=== PATIENT | female | born 1940 | race Caucasian/White ===

== ENCOUNTER 2021-02-01 05:40 | Inpatient (IN) ==
[2021-02-01] MEDS ORDERED: SODIUM CHLORIDE 0.9% 1000ML 1,000 ML IV ONE (06:07)
--- NOTE | 2021-02-01 06:14 | Emergency Department Note ---
Impression & Plan Acute lower GI bleeding, Diverticulitis, Syncope and collapse ED Provider Note Name: HANNAH TORO Age: 80 Sex: F Arrives Via: Walk-In Informant: Patient, daughter ED Provider: Pedro Luis Lance MD Chief Complaint: abdominal pain Impression: Acute Lower GI Bleeding Diverticulitis Syncope and Collapse Medical Decision Makin yr old female with acute lower abdominal pain, syncope/near syncope at football game and bright red rectal bleeding. On arrival tachy and pale, but improved with IV fluids. TTP LLQ abdomen thus ct obtained. Labs unremarkable with normal trop. Not consistent with PE/dissection. CT reveals acute diverticulitis. Given findings will need further evaluation/monitoring. Hospitalist paged for further management. Triage/Nursing Notes reviewed by Me Differentials:Diverticulosis, AVM, coagulopathy, colitis, inflammatory bowel disease, malignancy, Farhana-Diaz tear, esophagitis, peptic ulcer disease, variceal bleed, gastritis, epistaxis, fissure, hemorrhoids, as well as other pathologies. Vital Signs: reviewed and remarkable for tachy Interventions: nss bolus 1 L IV, zosyn iv Labs:Reviewed and remarkable for no significant abnormalities Imaging:Radiologist interpretation reviewed by me: ct a/p w iv con: Acute Diverticulitis Consult: Dr Garrison - Hospitalist Plan: Disposition:Hospitalization. Condition: Good History of Present Illness:80 yr old female arrives for evaluation of rectal bleeding. Patient notes she developed abdominal cramping followed by several bouts of diarrhea last nights. Admits she is unsure is blood in stool at that time. After leaving bathroom she had near-syncopal event. She was seen at [facility] and given 1 L NSS and Zofran IV. As she was feeling better discharge to home. Worsening abdominal cramping throughout the night. Several large bloody bowel movement this morning. Pain in LLQ worse with movement. Staying still makes her feel better. No medications taken for this. Denies previous bleeding issues. Takes no blood thinners. Notes previous diagnosis of diverticulosis though no history infection. No fevers, chills, vomiting, chest pain, epigastric pain, back pain, leg swelling, bruising nor other symptoms. Took Advil 2 nights ago for a sore shoulder but rarely uses NSAIDs. ROS: See above HPI for pertinent positives & negatives. A total of 10 systems reviewed and were otherwise negative. 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 EYES: No scleral icterus, unremarkable pupils. ENT: Mucous membranes moist, no nasal congestion. NECK: No masses appreciated, nomeningismus, trachea is midline. RESPIRATORY: No dyspnea. Clear to auscultation and equal bilaterally. No wheeze, no rhonchi. CARDIOVASCULAR: Tachy.No murmurs, rubs, gallops appreciated. GASTROINTESTINAL: LLQ TTP with hyperactive bowel sounds, otherwise abdomen soft, non-tender, no peritonitis.No masses appreciated. RECTAL: Bloody stool without hemorrhoids BACK: No midline tenderness, no CVA tenderness EXTREMITIES: Normal motion all extremities, no cyanosis, no edema. NEUROLOGIC: Alert and oriented, no acute motor or sensory deficits, no focal weakness, cranial nerves grossly intact. SKIN: No rash, no jaundice, no diaphoresis. PSYCH: Appropriate GCS: 15 ED Course: Times/Reassessments: stable, declines pain meds, much improved with IV fluids Pedro Luis Lance MD Past Med/Surg History Social History Smoking Status: Never smoker Preferred Language: Polish Feels Safe at Home: Yes Allergies Allergies Allergy/AdvReac Type Severity Reaction Status Date / Time No Known Allergies Allergy Unverified 02/01/21 07:53 Home Meds Home Medications Medication Instructions Recorded Confirmed atorvastatin 20 mg tablet (Lipitor) 20 mg PO QAM 02/01/21 02/01/21 levothyroxine 50 mcg tablet 50 mcg PO DAILYBB 02/01/21 02/01/21 (Synthroid) loratadine 10 mg tablet (Claritin) 10 mg PO HS 02/01/21 02/01/21 multivitamin 1 tab PO QAM 02/01/21 02/01/21 ramipril 10 mg capsule (Altace) 10 mg PO QAM 02/01/21 02/01/21 Results & Data (ED) Vital Signs Vital Signs - 24 hr 02/01/21 05:44 Temperature 37.1 C Temperature Source Oral Pulse Rate 120 H Respiratory Rate 20 Respiratory Depth Normal Blood Pressure 127/77 Blood Pressure Mean 93 Pulse Oximetry 97 Oxygen Delivery Method Room Air Sepsis Recent Fever Within 48 Hours No Sepsis New/Unexplained Change in Mental Status N/A Sepsis Action Taken by Nursing No Action Required Laboratory Data Result diagrams: 02/01/21 06:20 02/01/21 06:20 Lab Results 02/01/21 02/01/21 02/01/21 Range/Units 06:20 06:20 06:20 WBC 10.90 H (4.8-10.8) K/uL RBC 4.21 (4.2-5.4) M/uL Hgb 13.1 (12.0-16.0) g/dL POC Hgb (12.0-16.0) g/dl Hct 38.9 (37-47) % POC Hct (37-47) % MCV 92.4 (80-100) fL MCH 31.1 (25-34) pg MCHC 33.7 (32-36) g/dL RDW Std Deviation 43.3 (36.4-46.3) fL RDW Coeff of Torito 12.8 (11.5-14.5) % Plt Count 192 (130-400) K/uL MPV 9.7 (7.4-10.4) fL Immature Gran % (Auto) 0.2 % Neut % (Auto) 83.0 % Lymph % (Auto) 10.6 % [place] % (Auto) 4.2 % Eos % (Auto) 1.9 % Baso % (Auto) 0.1 % Neut # (Auto) 9.04 H (1.4-6.5) K/uL Lymph # (Auto) 1.16 L (1.2-3.4) K/uL [place] # (Auto) 0.46 (0.11-0.59) K/uL Eos # (Auto) 0.21 (0-0.5) K/uL Baso # (Auto) 0.01 (0-0.2) K/uL Immature Gran # (Auto) 0.02 (0.00-0.02) K/uL PT 10.0 (9.0-12.0) Seconds INR 1.0 (0.9-1.1) APTT 23.6 (21.0-31.0) Seconds PTT Ratio 0.9 POC Sodium (135-144) mmol/L Sodium 143 (136-145) mmol/L POC Potassium (3.3-5.0) mmol/L Potassium 4.1 (3.5-5.1) mmol/L POC Chloride (101-112) mmol/L Chloride 111 H (98-107) mmol/L Carbon Dioxide 24 (21-32) mmol/L POC Total CO2 (24-31) mmol/L Anion Gap 8.0 (3-11) POC Anion Gap (16-25) mmol/L POC BUN (7-18) mg/dl BUN 14 (7-18) mg/dl Creatinine 0.92 (0.6-1.2) mg/dl POC Creatinine (0.6-1.3) mg/dl Est Cr Clr Drug Dosing 44.1 ml/min Est GFR ( Amer) 67.2 ml/min Est GFR (Non-Af Amer) 58.0 ml/min BUN/Creatinine Ratio 15.3 (10-20) Glucose 123 H (70-99) mg/dl POC Glucose (other) (70-99) mg/dl Calcium 8.9 (8.5-10.1) mg/dl POC Ioniz Calcium Wander (1.12-1.32) mmol/l Magnesium 2.0 (1.8-2.4) mg/dl Total Bilirubin 0.6 (0.2-1) mg/dl Direct Bilirubin 0.1 (0-0.2) mg/dl AST 24 (15-37) U/L ALT 26 (12-78) U/L Alkaline Phosphatase 77 (45-117) U/L Total Protein 6.8 (6.4-8.2) gm/dl Albumin 3.6 (3.4-5.0) gm/dl Lipase 115 (73-393) U/L COVID-19 Eval Order Blood Type Antibody Screen 02/01/21 02/01/21 02/01/21 Range/Units 06:34 07:02 07:55 WBC (4.8-10.8) K/uL RBC (4.2-5.4) M/uL Hgb (12.0-16.0) g/dL POC Hgb 12.6 (12.0-16.0) g/dl Hct (37-47) % POC Hct 37 (37-47) % MCV (80-100) fL MCH (25-34) pg MCHC (32-36) g/dL RDW Std Deviation (36.4-46.3) fL RDW Coeff of Torito (11.5-14.5) % Plt Count (130-400) K/uL MPV (7.4-10.4) fL Immature Gran % (Auto) % Neut % (Auto) % Lymph % (Auto) % [place] % (Auto) % Eos % (Auto) % Baso % (Auto) % Neut # (Auto) (1.4-6.5) K/uL Lymph # (Auto) (1.2-3.4) K/uL [place] # (Auto) (0.11-0.59) K/uL Eos # (Auto) (0-0.5) K/uL Baso # (Auto) (0-0.2) K/uL Immature Gran # (Auto) (0.00-0.02) K/uL PT (9.0-12.0) Seconds INR (0.9-1.1) APTT (21.0-31.0) Seconds PTT Ratio POC Sodium 142 (135-144) mmol/L Sodium (136-145) mmol/L POC Potassium 4.1 (3.3-5.0) mmol/L Potassium (3.5-5.1) mmol/L POC Chloride 108 (101-112) mmol/L Chloride (98-107) mmol/L Carbon Dioxide (21-32) mmol/L POC Total CO2 21 L (24-31) mmol/L Anion Gap (3-11) POC Anion Gap 17.0 (16-25) mmol/L POC BUN 14 (7-18) mg/dl BUN (7-18) mg/dl Creatinine (0.6-1.2) mg/dl POC Creatinine 0.8 (0.6-1.3) mg/dl Est Cr Clr Drug Dosing ml/min Est GFR ( Amer) ml/min Est GFR (Non-Af Amer) ml/min BUN/Creatinine Ratio (10-20) Glucose (70-99) mg/dl POC Glucose (other) 123 H (70-99) mg/dl Calcium (8.5-10.1) mg/dl POC Ioniz Calcium Wander 1.22 (1.12-1.32) mmol/l Magnesium (1.8-2.4) mg/dl Total Bilirubin (0.2-1) mg/dl Direct Bilirubin (0-0.2) mg/dl AST (15-37) U/L ALT (12-78) U/L Alkaline Phosphatase (45-117) U/L Total Protein (6.4-8.2) gm/dl Albumin (3.4-5.0) gm/dl Lipase (73-393) U/L COVID-19 Eval Order Covid19 at [facility] Blood Type A Negative Antibody Screen NEGATIVE Administered Medications Discontinued Medications Sodium Chloride (Nss 1000ml) 1,000 mls @ 999 mls/hr IV .Q1H1M ONE Stop: 02/01/21 07:07 Last Infusion: 02/01/21 08:00 Dose: 0 mls/hr Documented by: [id number] Admin: 02/01/21 06:26 Dose: 999 mls/hr Documented by: [id number] Ioversol (Optiray 320 100ml) 93 ml IV ONCE ONE Stop: 02/01/21 07:12 Last Admin: 02/01/21 07:11 Dose: 93 ml Documented by: [id number] Imaging Data Radiologist's Impression: Abdomen/Pelvis CT 02/01/21 06:07 CT abd pelvis IV con only CLINICAL INDICATION: MN ^CTCN RM B7 ^LLQ pain, gi bleed. TECHNIQUE: Helical axial images of the abdomen and pelvis were obtained and displayed at 5 and 1 mm intervals. Automated dose lowering techniques and/or adjustment according to patient size were utilized for this exam. This exam was performed with intravenous contrast. COMPARISON: None available at the time of this dictation. FINDINGS: Lower chest: Bibasilar atelectasis is seen. Liver: Unremarkable. No focal lesions are seen. Gallbladder and biliary tree: No calcified gallstones. Normal caliber wall. Common bile duct measures 8 mm which is appropriate for age. Pancreas: Unremarkable, no focal lesions. Spleen: Unremarkable. Adrenals: Unremarkable. Kidneys and ureters: Unremarkable. Bladder: Unremarkable. Reproductive organs: Patient is status post hysterectomy. Bowel: Diverticulosis is seen. There is wall thickening and pericolonic edema in the sigmoid flexure and proximal descending colon. The appendix is normal. Small bowel loops are nondilated. There is a small hiatal hernia. Lymph nodes Retroperitoneal: Unremarkable. Mesenteric: Unremarkable. Pelvic: Unremarkable. Peritoneum: Normal, in particular no pneumoperitoneum or drainable fluid collection. Vessels: Atherosclerotic calcifications are seen. Abdominal wall: Unremarkable. Bones: Degenerative changes in the visualized spine. IMPRESSION: Acute diverticulitis in the sigmoid and descending colon. No evidence of abscess or perforation. ACT 112: Negative or not required by law. Electronically signed by: Chandler Lucas M.D. 02/01/2021 8:00 AM Discharge Plan Visit Data Chief Complaint: Rectal Bleed Stated Complaint: BLEEDING,RECTAL,ABD PAIN ED Provider: Pedro Luis Lance Discharge Problem: Acute lower GI bleeding, Diverticulitis, Syncope and collapse Patient Disposition: Admitted As Inpatient Condition: Good Forms Stand Alone Forms: [facility], Virtual Emergency Department, Important Visit Information Prescriptions Prescriptions: No Action multivitamin Tablet 1 tab PO QAM RF: 0 atorvastatin [Lipitor] 20 mg tablet 20 mg PO QAM RF: 0 levothyroxine [Synthroid] 50 mcg tablet 50 mcg PO DAILYBB RF: 0 loratadine [Claritin] 10 mg Tablet 10 mg PO HS RF: 0 ramipril [Altace] 10 mg capsule 10 mg PO QAM RF: 0 Referrals Referrals: PCP,NO [Primary Care Provider] -
[2021-02-01 06:40] LABS: Basophils # (auto) 0.01 K/uL (0-0.2); Basophils % (auto) 0.1 %; Eosinophils # (auto) 0.21 K/uL (0-0.5); Eosinophils % (auto) 1.9 %; Hematocrit (blood only) 38.9 % (37-47); Hemoglobin 13.1 g/dL (12.0-16.0); Immature Granulocytes # (auto) 0.02 K/uL (0.00-0.02); Immature Granulocytes % (auto) 0.2 %; Lymphocytes # (auto) 1.16 K/uL (1.2-3.4); Lymphocytes % (auto) 10.6 %; Mean Corpuscular Hemoglobin 31.1 pg (25-34); Mean Corpuscular Hgb Conc 33.7 g/dL (32-36); Mean Corpuscular Volume 92.4 fL (80-100); Mean Platelet Volume 9.7 fL (7.4-10.4); Monocytes # (auto) 0.46 K/uL (0.11-0.59); Monocytes % (auto) 4.2 %; Neutrophils # (auto) 9.04 K/uL (1.4-6.5); Platelet Count 192 K/uL (130-400); RDW Coefficient of Variation 12.8 % (11.5-14.5); RDW Standard Deviation 43.3 fL (36.4-46.3); Red Blood Count 4.21 M/uL (4.2-5.4)
[2021-02-01 06:51] LABS: Partial Thromboplastin Ratio 0.9; Partial Thromboplastin Time 23.6 Seconds (21.0-31.0)
[2021-02-01 06:52] LABS: iSTAT Creatinine 0.8 mg/dl (0.6-1.3); iSTAT Hemoglobin 12.6 g/dl (12.0-16.0); iSTAT Ionized Calcium 1.22 mmol/l (1.12-1.32); iSTAT Potassium 4.1 mmol/L (3.3-5.0)
[2021-02-01 07:00] LABS: Albumin Level 3.6 gm/dl (3.4-5.0); BUN Creatinine Ratio 15.3 (10-20); Bilirubin Direct 0.1 mg/dl (0-0.2); Calcium 8.9 mg/dl (8.5-10.1); Creatinine Clr Calc Pharmacy 44.1 ml/min; Est GFR (African American) 67.2 ml/min; Potassium 4.1 mmol/L (3.5-5.1)
[2021-02-01 07:02] LABS: Bilirubin,Total 0.6 mg/dl (0.2-1); Total Protein 6.8 gm/dl (6.4-8.2)
[2021-02-01] MEDS ORDERED: OPTIRAY 320 100ml IV ONE (07:11)
--- NOTE | 2021-02-01 08:02 | CT Scan Report ---
CT abd pelvis IV con only CLINICAL INDICATION: MN ^CTCN RM B7 ^LLQ pain, gi bleed. TECHNIQUE: Helical axial images of the abdomen and pelvis were obtained and displayed at 5 and 1 mm i ntervals. Automated dose lowering techniques and/or adjustment according to patient size were utilize d for this exam. This exam was performed with intravenous contrast. COMPARISON: None available at the time of this dictation. FINDINGS: Lower chest: Bibasilar atelectasis is seen. Liver: Unremarkable. No focal lesions are seen. Gallbladder and biliary tree: No calcified gallstones. Normal caliber wall. Common bile duct measures 8 mm which is appropriate for age. Pancreas: Unremarkable, no focal lesions. Spleen: Unremarkable. Adrenals: Unremarkable. Kidneys and ureters: Unremarkable. Bladder: Unremarkable. Reproductive organs: Patient is status post hysterectomy. Bowel: Diverticulosis is seen. There is wall thickening and pericolonic edema in the sigmoid flexure and proximal descending colon. The appendix is normal. Small bowel loops are nondilated. There is a s mall hiatal hernia. Lymph nodes Retroperitoneal: Unremarkable. Mesenteric: Unremarkable. Pelvic: Unremarkable. Peritoneum: Normal, in particular no pneumoperitoneum or drainable fluid collection. Vessels: Atherosclerotic calcifications are seen. Abdominal wall: Unremarkable. Bones: Degenerative changes in the visualized spine. IMPRESSION: Acute diverticulitis in the sigmoid and descending colon. No evidence of abscess or perforation. ACT 112: Negative or not required by law. Electronically signed by: Chandler Lucas M.D. 02/01/2021 8:00 AM
[2021-02-01] MEDS ORDERED: PIPERACILL/TAZOBAC CONSULT ACTIVE PRN ×2 (08:12→09:37)
[2021-02-01] MEDS ORDERED: PIPERACILLIN/TAZOBACTAM 4.5 GM/120 ML BAG IV ONE ×2 (08:12→14:00)
[2021-02-01 08:57] LABS: Appearance Urine Clear (Clear); Bacteria Urine Automated Negative (Negative); Bilirubin Urine Negative (Negative); Blood Urine 2+ (Negative); Color Urine Yellow; Glucose Urine UA Negative (Negative); Ketones Urine Negative (Negative); Leukocyte Esterase Urine Trace (Negative); Nitrite Urine Negative (Negative); Protein Urine Negative (Negative); RBC Urine Automated 0-4 /hpf (0-4); Specific Gravity Urine 1.008 (1.000-1.030); Urobilinogen Urine Negative (Negative); pH Urine 6.5 (4.5-7.5)
--- NOTE | 2021-02-01 09:53 | History & Physical Report ---
Date of Service February 01, 2021 Assessment & Plan (1) Diverticulitis: Plan: Acute diverticulitis without any abscess and/or perforation Sigmoid colon and the descending colon Started with intravenous Zosyn IV fluid and n.p.o. for now (2) Acute lower GI bleeding: Plan: Acute lower GI bleed likely secondary to diverticulitis and diverticular bleed We will check H&H every 6 hourly GI consult for possible colonoscopy Blood transfusion hemoglobin drops below 7 (3) Syncope and collapse: Plan: Likely secondary to dehydration Doubt any cardiac and/or neurological cause of this syncope (4) Hypertension: Plan: We will continue her current medication (5) Hypothyroidism: Plan: Continue supplement (6) Hyperlipidemia: Plan: Continue current medications DVT prophylaxis-SCDs CODE STATUS Full History of Present Illness Chief Complaint: Abdominal discomfort with near syncope and diarrhea with blood in the stool since yesterday Primary Care Provider: NO PCP She is an 80-year-old female with significant past medical history of hypertension hyperlipidemia and hypothyroidism apparently has been visiting to watch the football game has been complaining of abdominal discomfort with near syncope episode since yesterday while she was in the stadium. She has had bowel movement x2 and was seen by the medical personnel over the and not sent home. She also received intravenous fluid before going home. She has had continued abdominal discomfort and 2 more episodes of loose stool at home which showed blood and she is still feeling dizzy and from that point she was brought into the emergency room for further evaluation. She complained to have some chills but no documented fever. She felt nauseous but no vomiting. Her abdominal discomfort persisted. Denies any chest pain and/or palpitation, any cough and no shortness of breath, any neurological symptoms. She was noted to have minimally elevated white count at more than [address] of the abdomen pelvis did show acute diverticulitis involving the sigmoid and descending colon. She was started with intravenous Zosyn and was admitted to medical floor with telemetry for continuation of care. Allergies Allergy/AdvReac Type Severity Reaction Status Date / Time No Known Allergies Allergy Unverified 02/01/21 07:53 Home Medications Medication Instructions Recorded Confirmed Type atorvastatin 20 mg tablet (Lipitor) 20 mg PO QAM 02/01/21 02/01/21 History levothyroxine 50 mcg tablet 50 mcg PO DAILYBB 02/01/21 02/01/21 History (Synthroid) loratadine 10 mg tablet (Claritin) 10 mg PO HS 02/01/21 02/01/21 History multivitamin 1 tab PO QAM 02/01/21 02/01/21 History ramipril 10 mg capsule (Altace) 10 mg PO QAM 02/01/21 02/01/21 History Past Med/Surg History Social History Smoking Status: Never smoker Preferred Language: Colombian Feels Safe at Home: Yes Review of Systems Review of Systems: All systems reviewed & are unremarkable except as noted in HPI & below Physical Exam Physical Exam: Lying in bed comfortably Constitutional: well developed, well nourished and + ill appearing Eyes: PERRL, conjunctivae normal, anicteric sclerae ENMT: external ear and nose normal, oropharynx normal Neck: trachea midline, no thyromegaly Respiratory: no respiratory distress Auscultation: lungs clear to auscultation bilaterally Cardiovascular: Rate/Rhythm: regular rate, regular rhythm and + tachycardic Heart Sounds: normal S1 and normal S2; no murmur Gastrointestinal (Abdomen): Inspection/Auscultation: + abdomen distended and normal bowel sounds Percussion/Palpation: + abdomen tender (Tender left lower quadrant with minimal guarding and rigidity) and abdomen soft Musculoskeletal: No acute arthritis in any joint Neurologic: Alert, awake and oriented x3. No focal sensory and motor deficit appreciated Psychiatric: A+Ox3, euthymic affect Lymphatic: no cervical or axillary lymphadenopathy Results & Data Results & Data ([facility]) Vital Signs (Past 12 Hours) Vital Signs Temp Pulse Resp BP Pulse Ox 02/01/21 09:30 16 155/108 H 97 02/01/21 08:36 17 156/96 H 97 02/01/21 05:44 37.1 C 120 H 20 127/77 97 Laboratory Results Short CBC 02/01/21 Range/Units 06:20 WBC 10.90 H (4.8-10.8) K/uL Hgb 13.1 (12.0-16.0) g/dL Hct 38.9 (37-47) % Plt Count 192 (130-400) K/uL BMP 02/01/21 06:20 Sodium 143 Potassium 4.1 Chloride 111 H Carbon Dioxide 24 BUN 14 Creatinine 0.92 Glucose 123 H Calcium 8.9 Liver Function 02/01/21 Range/Units 06:20 Total Bilirubin 0.6 (0.2-1) mg/dl Direct Bilirubin 0.1 (0-0.2) mg/dl AST 24 (15-37) U/L ALT 26 (12-78) U/L Alkaline Phosphatase 77 (45-117) U/L Albumin 3.6 (3.4-5.0) gm/dl Urine 02/01/21 Range/Units 08:30 Urine Color Yellow Urine Appearance Clear (Clear) Urine pH 6.5 (4.5-7.5) Ur Specific [place] 1.008 (1.000-1.030) Urine Protein Negative (Negative) Urine Glucose (UA) Negative (Negative) Medications Administered Current Inpatient Medications Piperacillin Sod/Tazobactam (Sod 4.5 gm/ Dextrose) 120 mls @ 30 mls/hr IV Q8H [place]; Protocol Stop: 02/11/21 13:59 Sodium Chloride (Nss 1000ml) 1,000 mls @ 125 mls/hr IV .Q8H [place] Stop: 02/02/21 17:44 Miscellaneous Information (Piperacill/Tazobac Consult Active) 1 ea N/A UD PRN PRN Reason: Consult Stop: 03/03/21 09:36 Code Status & VTE Plan VTE Prophylaxis Plan VTE Prophylaxis will be ordered: Yes
[2021-02-01] MEDS: SODIUM CHLORIDE 0.9% 1000ML 1,000 ML IV SCH ×2 (10:00→17:10)
[2021-02-01] MEDS ORDERED: HYDROmorphone INJ 0.5 MG/0.5 ML SYR IV PRN (10:04)
[2021-02-01 13:53] LABS: Hematocrit (blood only) 38.6 % (37-47); Hemoglobin 13.1 g/dL (12.0-16.0)
[2021-02-01] MEDS ORDERED: ACETAMINOPHEN 500 MG TAB PO PRN (17:16)
[2021-02-01] MEDS: ENALAPRIL MALEATE 10 MG TAB PO SCH (17:38)
--- NOTE | 2021-02-01 19:58 | Electrocardiogram Report ---
Test Reason : Blood Pressure : / mmHG Vent. Rate : 103 BPM Atrial Rate : 103 BPM P-R Int : 176 ms QRS Dur : 078 ms QT Int : 342 ms P-R-T Axes : 036 018 028 degrees QTc Int : 448 ms Sinus tachycardia Otherwise normal ECG No previous ECGs available Confirmed by Heath Meade ([id number]) on 02/01/2021 7:58:11 PM Referred By: REFERRED SELF Confirmed By:Heath Meade
[2021-02-01] MEDS: PIPERACILLIN/TAZOBACTAM 4.5 GM in DEXTROSE 5% 100 ML IV SCH (21:40)
[2021-02-01] MEDS: LORATADINE 10 MG TAB PO SCH (21:44)
[2021-02-01 22:51] LABS: Hematocrit (blood only) 34.9 % (37-47); Hemoglobin 11.8 g/dL (12.0-16.0)
[2021-02-02] MEDS: SODIUM CHLORIDE 0.9% 1000ML 1,000 ML IV SCH ×2 (01:44→10:36)
[2021-02-02] MEDS: PIPERACILLIN/TAZOBACTAM 4.5 GM in DEXTROSE 5% 100 ML IV SCH ×3 (05:56→21:20)
[2021-02-02] MEDS: LEVOTHYROXINE SODIUM 50 MCG TABLET PO SCH (05:59)
[2021-02-02 07:34] LABS: Creatinine Clr Calc Pharmacy 52.1 ml/min; Est GFR (African American) 82.1 ml/min; Est GFR (Non-African American) 70.8 ml/min
[2021-02-02] MEDS: MULTIVITAMIN TAB PO SCH (08:00)
[2021-02-02] MEDS: ATORVASTATIN 20 MG TAB PO SCH (08:00)
[2021-02-02] MEDS: ENALAPRIL MALEATE 10 MG TAB PO SCH (08:01)
[2021-02-02 08:32] LABS: Basophils # (auto) 0.02 K/uL (0-0.2); Basophils % (auto) 0.2 %; Eosinophils # (auto) 0.18 K/uL (0-0.5); Eosinophils % (auto) 1.7 %; Hematocrit (blood only) 33.7 % (37-47); Hemoglobin 11.4 g/dL (12.0-16.0); Immature Granulocytes # (auto) 0.01 K/uL (0.00-0.02); Immature Granulocytes % (auto) 0.1 %; Lymphocytes # (auto) 1.51 K/uL (1.2-3.4); Lymphocytes % (auto) 14.7 %; Mean Corpuscular Hemoglobin 31.2 pg (25-34); Mean Corpuscular Hgb Conc 33.8 g/dL (32-36); Mean Corpuscular Volume 92.3 fL (80-100); Mean Platelet Volume 9.6 fL (7.4-10.4); Monocytes # (auto) 0.46 K/uL (0.11-0.59); Monocytes % (auto) 4.5 %; Neutrophils # (auto) 8.11 K/uL (1.4-6.5); Neutrophils % (auto) 78.8 %; Platelet Count 174 K/uL (130-400); Red Blood Count 3.65 M/uL (4.2-5.4); White Blood Count 10.29 K/uL (4.8-10.8)
[2021-02-02 08:41] LABS: BUN Creatinine Ratio 11.2 (10-20); Calcium 8.4 mg/dl (8.5-10.1); Creatinine Clr Calc Pharmacy 49.5 ml/min; Est GFR (African American) 77.2 ml/min; Est GFR (Non-African American) 66.6 ml/min; Potassium 3.5 mmol/L (3.5-5.1)
--- NOTE | 2021-02-02 11:56 | Gastrointestinal Consultation ---
Date of Consultation February 02, 2021 Assessment & Plan (1) Diverticulitis: likely ischemic vs infectious colitis. Agree with IV abx Ok with Liquid diet Stool Cultures if has any further bowel movements Colonoscopy in 2-4 months home in [place] History of Present Illness Attending Physician: Nam Garrison MD History of Present Illness 80-year-old female with significant past medical history of hypertension hyperlipidemia and hypothyroidism who lives in [facility] and came into town for the [employer] football game. After tailgating she walked to her seat, and then had pretty significant left lower quadrant crampy abdominal pain followed by 2 bowel movements she felt presyncopal, and was taken for care by EMS at the football game. She received intravenous fluid before going home. After going home ,she had continued abdominal discomfort and 2 more episodes of loose stool at home which showed blood and therefore presented to emergency room for further evaluation. She complained to have some chills but no documented fever. She felt nauseous but no vomiting. Her abdominal discomfort persisted. Denies any chest pain and/or palpitation, any cough and no shortness of breath, any neurological symptoms. She was noted to have minimally elevated white count at more than [address] of the abdomen pelvis did show acute diverticulitis involving the sigmoid and descending colon. She was started with intravenous Zosyn and was admitted to medical floor with telemetry for continuation of care. Allergies Allergy/AdvReac Type Severity Reaction Status Date / Time No Known Allergies Allergy Unverified 02/01/21 07:53 Home Medications Medication Instructions Recorded Confirmed Type atorvastatin 20 mg tablet (Lipitor) 20 mg PO QAM 02/01/21 02/01/21 History levothyroxine 50 mcg tablet 50 mcg PO DAILYBB 02/01/21 02/01/21 History (Synthroid) loratadine 10 mg tablet (Claritin) 10 mg PO HS 02/01/21 02/01/21 History multivitamin 1 tab PO QAM 02/01/21 02/01/21 History ramipril 10 mg capsule (Altace) 10 mg PO QAM 02/01/21 02/01/21 History Patient History Social History Smoking Status: Never smoker Hx Alcohol Use: Yes Alcohol type: wine Hx Substance Use: No Preferred Language: Sinhala Communication Ability: Effective Contour Sander Required: No Beliefs That Will Affect Care: None Current Living Situation: Alone Other Information That Helps Us Care for You: No Feels Safe at Home: Yes Safety Concerns: Feels Safe At This Time Assistive Devices: None Review of Systems Review of Systems: 10 system review negative except for as above Physical Exam Constitutional: WD/WN, vitals as above Cardiovascular: RRR, no murmur, no edema Gastrointestinal (Abdomen): normal bowel sounds, soft, nontender, no hepatosplenomegaly soft, mildly tender in left lower quadrant. Results & Data ([facility]) Vital Signs (Past 12 Hours) Vital Signs Temp Pulse Pulse Resp BP Pulse Ox 02/02/21 11:32 37.0 C 92 H 16 125/73 92 02/02/21 07:42 37.3 C 97 H 16 138/78 96 02/02/21 06:49 92 H 02/02/21 03:48 37.2 C 92 H 18 133/85 93
--- NOTE | 2021-02-02 13:18 | Hospitalist Progress Note ---
Date of Service February 02, 2021 Assessment & Plan (1) Diverticulitis: Plan: Acute diverticulitis without any abscess and/or perforation Sigmoid colon and the descending colon Started with intravenous Zosyn IV fluid and n.p.o. for now Appreciate GI input and recommendation Clinically better and will start clears orally Advance diet as tolerated tomorrow and if feeling better will be discharged home on oral Cipro and Flagyl (2) Acute lower GI bleeding: Plan: Acute lower GI bleed likely secondary to diverticulitis and diverticular bleed We will check H&H every 6 hourly GI consult for possible colonoscopy Blood transfusion hemoglobin drops below 7 Appreciate GI input and recommendation No drop in hemoglobin and no more GI bleed (3) Syncope and collapse: Plan: Likely secondary to dehydration Doubt any cardiac and/or neurological cause of this syncope Denies any dizziness and did not have any arrhythmias (4) Hypertension: Plan: We will continue her current medication (5) Hypothyroidism: Plan: Continue supplement (6) Hyperlipidemia: Plan: Continue current medications DVT prophylaxis-SCDs CODE STATUS Full Admission and Anticipated Discharge Date Admission Date: February 01, 2021 Subjective 02/02/2021 The patient was seen and examined in medical telemetry unit She complains to have some discomfort in the left lower quadrant but no pain, no nausea no vomiting Denies any fever and no chills Review of Systems Review of Systems: All systems reviewed and are unremarkable except as noted below Physical Exam Physical Exam: Lying in bed comfortably Constitutional: well developed, well nourished and + ill appearing Eyes: PERRL, conjunctivae normal, anicteric sclerae ENMT: external ear and nose normal, oropharynx normal Neck: trachea midline, no thyromegaly Respiratory: no respiratory distress Auscultation: lungs clear to auscultation bilaterally Cardiovascular: Rate/Rhythm: regular rate, regular rhythm and + tachycardic Heart Sounds: normal S1 and normal S2; no murmur Gastrointestinal (Abdomen): Inspection/Auscultation: + abdomen distended and normal bowel sounds Percussion/Palpation: + abdomen tender (Tender left lower quadrant with minimal guarding and rigidity) and abdomen soft Musculoskeletal: No acute arthritis in any joint Neurologic: Alert, awake and oriented x3. No focal sensory and motor deficit appreciated Psychiatric: A+Ox3, euthymic affect Lymphatic: no cervical or axillary lymphadenopathy Results & Data Results & Data ([facility]) Vital Signs (Past 12 Hours) Vital Signs Temp Pulse Pulse Resp BP Pulse Ox 02/02/21 11:32 37.0 C 92 H 16 125/73 92 02/02/21 07:42 37.3 C 97 H 16 138/78 96 02/02/21 06:49 92 H 02/02/21 03:48 37.2 C 92 H 18 133/85 93 Laboratory Results Short CBC 02/01/21 02/01/21 02/02/21 Range/Units 13:42 22:41 06:14 WBC 10.29 (4.8-10.8) K/uL Hgb 13.1 11.8 L 11.4 L (12.0-16.0) g/dL Hct 38.6 34.9 L 33.7 L (37-47) % Plt Count 174 (130-400) K/uL BMP 02/02/21 02/02/21 06:13 06:14 Sodium 142 Potassium 3.5 Chloride 111 H Carbon Dioxide 24 BUN 9 D Creatinine 0.78 0.82 Glucose 95 Calcium 8.4 L Medications Administered Current Inpatient Medications Acetaminophen (Acetaminophen 500 Mg Tab) 1,000 mg PO Q8H PRN PRN Reason: Headache or Pain Stop: 03/03/21 17:15 Last Admin: 02/01/21 17:38 Dose: 1,000 mg Documented by: Atorvastatin Calcium (Atorvastatin 20 Mg Tab) 20 mg PO [facility] Stop: 03/04/21 08:59 Last Admin: 02/02/21 08:00 Dose: 20 mg Documented by: Enalapril Maleate (Enalapril Maleate 10 Mg Tab) 40 mg PO [facility]; Protocol Stop: 03/03/21 17:29 Last Admin: 02/02/21 08:01 Dose: 40 mg Documented by: Hydromorphone HCl (Hydromorphone Inj 0.5 Mg/0.5 Ml Syr) 0.25 mg IV Q6H PRN PRN Reason: Pain Stop: 02/15/21 10:03 Piperacillin Sod/Tazobactam (Sod 4.5 gm/ Dextrose) 120 mls @ 30 mls/hr IV Q8H [facility]; Protocol Stop: 02/11/21 21:59 Last Infusion: 02/02/21 09:56 Dose: Infused Documented by: Sodium Chloride (Nss 1000ml) 1,000 mls @ 125 mls/hr IV .Q8H [facility] Stop: 02/02/21 17:44 Last Admin: 02/02/21 10:36 Dose: 125 mls/hr Documented by: Levothyroxine Sodium (Levothyroxine Sodium 50 Mcg Tablet) 50 mcg PO DAILYBB [facility] Stop: 03/04/21 06:29 Last Admin: 02/02/21 05:59 Dose: 50 mcg Documented by: Loratadine (Loratadine 10 Mg Tab) 10 mg PO HS [facility] Stop: 03/03/21 20:59 Last Admin: 02/01/21 21:44 Dose: 10 mg Documented by: Miscellaneous Information (Piperacill/Tazobac Consult Active) 1 ea N/A UD PRN PRN Reason: Consult Stop: 03/03/21 09:36 Multivitamins (Multivitamin Tab) 1 tab PO QAM [facility] Stop: 03/04/21 08:59 Last Admin: 02/02/21 08:00 Dose: 1 tab Documented by:
[2021-02-02] MEDS: LORATADINE 10 MG TAB PO SCH (21:20)
[2021-02-03] MEDS: PIPERACILLIN/TAZOBACTAM 4.5 GM in DEXTROSE 5% 100 ML IV SCH (06:31)
[2021-02-03] MEDS: LEVOTHYROXINE SODIUM 50 MCG TABLET PO SCH (06:32)
[2021-02-03 07:22] LABS: Creatinine Clr Calc Pharmacy 51.4 ml/min; Est GFR (African American) 80.8 ml/min; Est GFR (Non-African American) 69.7 ml/min
[2021-02-03] MEDS: MULTIVITAMIN TAB PO SCH (07:51)
[2021-02-03] MEDS: ENALAPRIL MALEATE 10 MG TAB PO SCH (07:51)
[2021-02-03] MEDS: ATORVASTATIN 20 MG TAB PO SCH (07:51)
--- NOTE | 2021-02-03 10:54 | Gastroenterology Progress Note ---
Date of Service February 03, 2021 Assessment & Plan (1) Diverticulitis: Plan: Likely ischemic vs infectious colitis. Agree with IV abx Ok with Liquid diet Stool Cultures if has any further bowel movements Colonoscopy in 2-4 months home in [place] No GI contraindication for DC. GI will sign off. (2) Acute lower GI bleeding: Plan: Hb is stable. No plans for endoscopy. See above. Admission and Anticipated Discharge Date Admission Date: February 01, 2021 Supervising Physician Co-Signing Physician Notes Attending attestation I have seen, examined this patient, and agree with the findings and above by our mid-level provider CHARLY Chin, with the following additions: - Doing well - Ok for D/C - No signs of bleeding - Plan for F/U with local GI doc in 4-6 wks - Abx course Subjective 80 yr female admitted with LLQ pain and rectal bleeding. CT with uncomplicated diverticulitis. On Cipro/flagyl, liquid diet (tolerating well). Symptoms improved this morning. No N/V. Still LLQ pain but improved. Passed a brown, liquid BM today. Reports bloating. Review of Systems Review of Systems: ROS: Gen: Denies weakness, fevers, weight loss Eyes: No eye redness, or pain, no recent vision changes Resp: No SOB, no cough Cardio: No palpitations/irregular beats, no chest pain GI: As per HPI, otherwise (-) : Denies pain on urination Skin: No jaundice, itching or new rashes Physical Exam Constitutional: well developed and cooperative Eyes: PERRL, conjunctivae normal, anicteric sclerae Respiratory: normal respiratory effort, lungs clear to auscultation Cardiovascular: RRR, no murmur, no edema Gastrointestinal (Abdomen): Percussion/Palpation: + abdomen tender (Moderate LLQ tenderness on palpation. ) and abdomen soft; no guarding and abdomen not rigid Skin: no rashes, warm and dry normal turgor Neurologic: PERRL, EOMI, accommodation nl, no face palsy, no dysarthria awake; not confused Psychiatric: A+Ox3, euthymic affect Orientation: alert, oriented x 3 and cooperative Results & Data ([facility]) Vital Signs (Past 12 Hours) Vital Signs Temp Pulse Pulse Resp BP Pulse Ox 02/03/21 07:56 37.2 C 90 18 131/75 92 02/03/21 07:20 91 H 02/03/21 03:16 37.7 C H 100 H 16 145/87 H 92 02/03/21 00:30 96 H 02/02/21 23:28 37.4 C 100 H 18 155/80 H 94 Laboratory Results Cr 0.[address] w IV contrast 02/01/21: Acute diverticulitis in the sigmoid and descending colon. No evidence of abscess or perforation.
[2021-02-03] MEDS ORDERED: metroNIDAZOLE 500 MG TAB PO SCH (11:30)
[2021-02-03] MEDS ORDERED: CIPROFLOXACIN 500 MG TAB PO SCH (11:30)
--- NOTE | 2021-02-03 12:08 | Hospitalist Progress Note ---
Date of Service February 03, 2021 Assessment & Plan (1) Diverticulitis: Plan: Acute diverticulitis without any abscess and/or perforation Sigmoid colon and the descending colon Started with intravenous Zosyn IV fluid and n.p.o. for now Appreciate GI input and recommendation Clinically better and will start clears orally Advance diet as tolerated tomorrow and if feeling better will be discharged home on oral Cipro and Flagyl Minimal abdominal discomfort and has been tolerating diet Denies any fever and/or chills. No nausea no vomiting We will discharge home this afternoon (2) Acute lower GI bleeding: Plan: Acute lower GI bleed likely secondary to diverticulitis and diverticular bleed We will check H&H every 6 hourly GI consult for possible colonoscopy Blood transfusion hemoglobin drops below 7 Appreciate GI input and recommendation No drop in hemoglobin and no more GI bleed Will need to have an GI evaluation as an outpatient for possible colonoscopy (3) Syncope and collapse: Plan: Likely secondary to dehydration Doubt any cardiac and/or neurological cause of this syncope Denies any dizziness and did not have any arrhythmias Number dizziness (4) Hypertension: Plan: We will continue her current medication (5) Hypothyroidism: Plan: Continue supplement (6) Hyperlipidemia: Plan: Continue current medications DVT prophylaxis-SCDs CODE STATUS Full Admission and Anticipated Discharge Date Admission Date: February 01, 2021 Subjective 02/02/2021 The patient was seen and examined in medical telemetry unit She complains to have some discomfort in the left lower quadrant but no pain, no nausea no vomiting Denies any fever and no chills Review of Systems Review of Systems: All systems reviewed and are unremarkable except as noted below Physical Exam Physical Exam: Lying in bed comfortably Constitutional: well developed, well nourished and + ill appearing Eyes: PERRL, conjunctivae normal, anicteric sclerae ENMT: external ear and nose normal, oropharynx normal Neck: trachea midline, no thyromegaly Respiratory: no respiratory distress Auscultation: lungs clear to auscultation bilaterally Cardiovascular: Rate/Rhythm: regular rate, regular rhythm and + tachycardic Heart Sounds: normal S1 and normal S2; no murmur Gastrointestinal (Abdomen): Inspection/Auscultation: + abdomen distended and normal bowel sounds Percussion/Palpation: + abdomen tender (Tender left lower quadrant with minimal guarding and rigidity) and abdomen soft Psychiatric: A+Ox3, euthymic affect Lymphatic: no cervical or axillary lymphadenopathy Results & Data Results & Data ([facility]) Vital Signs (Past 12 Hours) Vital Signs Temp Pulse Pulse Resp BP Pulse Ox 02/03/21 07:56 37.2 C 90 18 131/75 92 02/03/21 07:20 91 H 02/03/21 03:16 37.7 C H 100 H 16 145/87 H 92 02/03/21 00:30 96 H Laboratory Results BMP 02/03/21 06:29 Creatinine 0.79 Medications Administered Current Inpatient Medications Acetaminophen (Acetaminophen 500 Mg Tab) 1,000 mg PO Q8H PRN PRN Reason: Headache or Pain Stop: 03/03/21 17:15 Last Admin: 02/01/21 17:38 Dose: 1,000 mg Documented by: Atorvastatin Calcium (Atorvastatin 20 Mg Tab) 20 mg PO [facility] Stop: 03/04/21 08:59 Last Admin: 02/03/21 07:51 Dose: 20 mg Documented by: Ciprofloxacin (Ciprofloxacin 500 Mg Tab) 500 mg PO BID [facility] Stop: 02/13/21 11:29 Enalapril Maleate (Enalapril Maleate 10 Mg Tab) 40 mg PO [facility]; Protocol Stop: 03/03/21 17:29 Last Admin: 02/03/21 07:51 Dose: 40 mg Documented by: Hydromorphone HCl (Hydromorphone Inj 0.5 Mg/0.5 Ml Syr) 0.25 mg IV Q6H PRN PRN Reason: Pain Stop: 02/15/21 10:03 Levothyroxine Sodium (Levothyroxine Sodium 50 Mcg Tablet) 50 mcg PO DAILYBB [facility] Stop: 03/04/21 06:29 Last Admin: 02/03/21 06:32 Dose: 50 mcg Documented by: Loratadine (Loratadine 10 Mg Tab) 10 mg PO HS [facility] Stop: 03/03/21 20:59 Last Admin: 02/02/21 21:20 Dose: 10 mg Documented by: Metronidazole (Metronidazole 500 Mg Tab) 500 mg PO BID [facility] Stop: 02/13/21 11:29 Multivitamins (Multivitamin Tab) 1 tab PO [facility] Stop: 03/04/21 08:59 Last Admin: 02/03/21 07:51 Dose: 1 tab Documented by:
--- NOTE | 2021-02-06 07:19 | Discharge Summary ---
Date of Service February 06, 2021 Admission HPI Per Admitting Provider She is an 80-year-old female with significant past medical history of hypertension hyperlipidemia and hypothyroidism apparently has been visiting to watch the football game has been complaining of abdominal discomfort with near syncope episode since yesterday while she was in the stadium. She has had bowel movement x2 and was seen by the medical personnel over the and not sent home. She also received intravenous fluid before going home. She has had continued abdominal discomfort and 2 more episodes of loose stool at home which showed blood and she is still feeling dizzy and from that point she was brought into the emergency room for further evaluation. She complained to have some chills but no documented fever. She felt nauseous but no vomiting. Her abdominal discomfort persisted. Denies any chest pain and/or palpitation, any cough and no shortness of breath, any neurological symptoms. She was noted to have minimally elevated white count at more than [address] of the abdomen pelvis did show acute diverticulitis involving the sigmoid and descending colon. She was started with intravenous Zosyn and was admitted to medical floor with telemetry for continuation of care. Admission Exam Per Admitting Provider Physical Exam: Lying in bed comfortably Constitutional: well developed, well nourished and + ill appearing Eyes: PERRL, conjunctivae normal, anicteric sclerae ENMT: external ear and nose normal, oropharynx normal Neck: trachea midline, no thyromegaly Respiratory: no respiratory distress Auscultation: lungs clear to auscultation bilaterally Cardiovascular: Rate/Rhythm: regular rate, regular rhythm and + tachycardic Heart Sounds: normal S1 and normal S2; no murmur Gastrointestinal (Abdomen): Inspection/Auscultation: + abdomen distended and normal bowel sounds Percussion/Palpation: + abdomen tender (Tender left lower quadrant with minimal guarding and rigidity) and abdomen soft Musculoskeletal: No acute arthritis in any joint Neurologic: Alert, awake and oriented x3. No focal sensory and motor deficit appreciated Psychiatric: A+Ox3, euthymic affect Lymphatic: no cervical or axillary lymphadenopathy Principal Diagnosis Acute sigmoid and descending colon diverticulitis, lower GI bleed secondary to infectious/ischemic colitis, hypertension, hypothyroidism Discharge Exam Constitutional WD/WN, vitals as above well developed, well nourished, + ill appearing and cooperative Eyes PERRL, conjunctivae normal, anicteric sclerae ENMT external ear and nose normal, oropharynx normal Neck trachea midline, no thyromegaly Respiratory normal respiratory effort, lungs clear to auscultation no respiratory distress Auscultation: lungs clear to auscultation bilaterally Cardiovascular RRR, no murmur, no edema Rate/Rhythm: regular rate, regular rhythm and + tachycardic Heart Sounds: normal S1 and normal S2; no murmur Gastrointestinal (Abdomen) normal bowel sounds, soft, nontender, no hepatosplenomegaly Inspection/Auscultation: + abdomen distended and normal bowel sounds Percussion/Palpation: + abdomen tender (Tender left lower quadrant with minimal guarding and rigidity) and abdomen soft; no guarding and abdomen not rigid Skin no rashes, warm and dry normal turgor Neurologic PERRL, EOMI, accommodation nl, no face palsy, no dysarthria awake; not confused Psychiatric A+Ox3, euthymic affect Orientation: alert, oriented x 3 and cooperative Lymphatic no cervical or axillary lymphadenopathy Discharge Data Allergies Allergy/AdvReac Type Severity Reaction Status Date / Time No Known Allergies Allergy Unverified 02/01/21 07:53 Consultations 02/01/21 08:23 ED Decision to Admit Stat 02/02/21 08:10 Consult Gastroenterology Routine Ordered Studies 02/01/21 06:07 CT abd pelvis IV con only Stat Hospital Course (1) Diverticulitis: Acute diverticulitis without any abscess and/or perforation Sigmoid colon and the descending colon Started with intravenous Zosyn IV fluid and n.p.o. for now Appreciate GI input and recommendation Clinically better and will start clears orally Advance diet as tolerated tomorrow and if feeling better will be discharged home on oral Cipro and Flagyl Minimal abdominal discomfort and has been tolerating diet Denies any fever and/or chills. No nausea no vomiting We will discharge home this afternoon (2) Acute lower GI bleeding: Acute lower GI bleed likely secondary to diverticulitis and diverticular bleed We will check H&H every 6 hourly GI consult for possible colonoscopy Blood transfusion hemoglobin drops below 7 Appreciate GI input and recommendation No drop in hemoglobin and no more GI bleed Will need to have an GI evaluation as an outpatient for possible colonoscopy (3) Syncope and collapse: Likely secondary to dehydration Doubt any cardiac and/or neurological cause of this syncope Denies any dizziness and did not have any arrhythmias Number dizziness (4) Hypertension: We will continue her current medication (5) Hypothyroidism: Continue supplement (6) Hyperlipidemia: Continue current medications DVT prophylaxis-SCDs CODE STATUS Full Total Time Total Time Spent Total Time Spent (In Minutes): 35 minutes Discharge Plan Discharge Items Patient Disposition: Home - Self-Care Reason For Visit: ACUTE DIVERTICULITIS WITH BLEED Discharge Diagnosis: Acute sigmoid and descending colon diverticulitis, lower GI bleed secondary to infectious/ischemic colitis, hypertension, hypothyroidism Condition on Discharge: Good Activity: Resume your previous activity Non-emergency contact: Primary Care Provider Call non-emergency contact if: you have any medication questions and your symptoms worsen Follow-up/Referrals: PCP,NO [Primary Care Provider] - (Please make an appointment with your primary care physician within 7 days.) Diet: Low Fiber Addtl Attending Provider Instructions: Please take precautions to avoid fall Take it easy for the next few days Please finish the course of antibiotic Make an appointment with your primary care physician within 7 days and gastroenterology service within next few weeks Pending Studies at Discharge: No Stand-Alone Forms: My [facility] [email or web address], Smoking Cessation Medications and DC Order Prescriptions: New metronidazole 500 mg Tablet 500 mg PO BID 7 Days Qty: 14 RF: 0 ciprofloxacin HCl 500 mg Tablet 500 mg PO BID 7 Days Qty: 14 RF: 0 Lactinex 1 million cell tablet,chewable 1 tab PO BID Qty: 30 RF: 0 Continued multivitamin Tablet 1 tab PO QAM RF: 0 atorvastatin [Lipitor] 20 mg tablet 20 mg PO QAM RF: 0 levothyroxine [Synthroid] 50 mcg tablet 50 mcg PO DAILYBB RF: 0 loratadine [Claritin] 10 mg Tablet 10 mg PO HS RF: 0 ramipril [Altace] 10 mg capsule 10 mg PO QAM RF: 0 Discharge Orders: Discharge Order (Routine); Ordered 02/03/21 Ordered By: Nam Levin/Other Patient Handouts: Low-Fiber Diet, Diverticulosis Diverticulitis Admission Data Admit Date/Time: 02/01/21 09:38 Attending Provider: Nam Garrison Admit Provider: Nam Garrison Primary Care Provider: PCP,NO Other Providers: Nam Garrison ; Biju Sarmiento ; Georgia Hamilton ; Helder Guzman ; Yi Rodriguez ; Jules Llanos ; Todd Waters ; Petra Blake ; Gene Manrique ; Nida Alvarez ; Denae Reynolds ; Vicki Bowen ; Ashanti Hernandez ; Seth Hebert Other Interventions: Discharge Summary Assessment (RN) Last Done: 02/03/21 14:45
== END 2021-02-03 15:30 | disposition home or self-care (01) | DRG 378 ==
LOC: ED 05:40 → 2N 09:38